=== PATIENT | male | born 1975 | race Two or more races ===

== ENCOUNTER 2017-04-14 06:59 | Emergency (ER) | payer SELFPAY ==
[~2017-04-14] VITALS: Ht 172.7 cm; Wt 63.5 kg
[2017-04-14 07:03] VITALS: BP 117/84
--- NOTE | 2017-04-14 07:03 | NUR ---
Dr Muñoz at bedside to eval.
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
[2017-04-14] MEDS ORDERED: IBUPROFEN 400 MG TABLET ONE (07:08)
[2017-04-14] MEDS ORDERED: IBUPROFEN 400 MG TABLET PO ONE (07:30)
--- NOTE | 2017-04-14 07:59 | NUR ---
Patient discharged to home in stable condition. Written and verbal after care instructions given. Patient verbalizes understanding of instruction.
== END 2017-04-14 08:00 | disposition home or self-care (01) ==
LOC: ER 07:01
DX: S16.1XXA Strain of muscle, fascia and tendon at neck level, initial encounter (principal); Z88.6 Allergy status to analgesic agent; V43.52XA Car driver injured in collision with other type car in traffic accident, initial encounter; Y93.89 Activity, other specified; Y92.488 Other paved roadways as the place of occurrence of the external cause; Y99.8 Other external cause status
CPT/HCPCS: 72125-TC; A4606; Z7610